=== PATIENT | male | born 1990 ===

== ENCOUNTER 2023-01-12 03:42 | Emergency (ER) | payer BC ==
[2023-01-12] MEDS ORDERED: Ondansetron 4 MG/2 ML SDV IVPUSH ONE (03:51)
[2023-01-12] MEDS ORDERED: Morphine 4 MG/ML Syringe IVPUSH ONE (03:51)
[2023-01-12] MEDS ORDERED: Sodium Chloride 0.9% 1,000 ML IV ONE (03:51)
[2023-01-12] MEDS ORDERED: Iopamidol 755 MG/ML 500 ML Multipack Bottle IVPUSH ONE ×2 (04:02→04:57)
[2023-01-12 04:27] LABS: BASOPHILS PERCENT AUTO 0.3 % (0.0-1.5); EOSINOPHILS ABSOLUTE AUTO 0.1 K/uL (0.0-0.7); EOSINOPHILS PERCENT AUTO 0.6 % (0.0-7.0); HEMATOCRIT 45.6 % (38.0-50.0); HEMOGLOBIN 15.3 g/dL (13.0-17.0); LYMPHOCYTES ABSOLUTE AUTO 1.8 K/uL (0.6-2.4); LYMPHOCYTES PERCENT AUTO 15.3 % (16.0-40.0); MEAN CORPUSCULAR HEMOGLOBIN 28.1 pg (27.0-32.0); MEAN CORPUSCULAR HGB CONC 33.6 g/dL (31.0-37.0); MEAN CORPUSCULAR VOLUME 83.8 fL (80.0-98.0); MONOCYTES ABSOLUTE AUTO 0.4 K/uL (0.0-0.8); MONOCYTES PERCENT AUTO 3.8 % (0.0-15.0); NEUTROPHILS ABSOLUTE AUTO 9.2 K/uL (1.4-5.7); NRBC ABSOLUTE 0 K/uL; PLATELET COUNT,PLT 253 K/uL (150-400); RED BLOOD CELL COUNT 5.44 M/uL (4.50-5.90); WHITE BLOOD CELL COUNT,WBC 11.54 K/uL (4.0-11.0)
[2023-01-12 04:48] LABS: A/G RATIO 1.1 (0.9-1.6); ALBUMIN 4.1 g/dL (3.4-5.0); BILIRUBIN TOTAL 0.4 mg/dL (0.2-1.0); CALCIUM 9.1 mg/dL (8.5-10.1); CREATININE 1.1 mg/dL (0.8-1.3); EST CRCL DRUG DOSING (CG) 88.47 mL/min; MAGNESIUM 1.9 mg/dL (1.8-2.4); POTASSIUM,K 3.9 mmol/L (3.5-5.1); PROTEIN TOTAL,TP 7.7 g/dL (6.4-8.2)
[2023-01-12] MEDS ORDERED: HYDROmorphone 1 MG/ML Syringe IVPUSH ONE (04:48)
[2023-01-12 04:52] LABS: LACTIC ACID 2.5 mmol/L (0.4-2.0)
== END 2023-01-12 06:11 | disposition home or self-care (01) ==
LOC: MW.ED 03:42
DX: R10.11 Right upper quadrant pain (principal); K21.9 Gastro-esophageal reflux disease without esophagitis; Z90.49 Acquired absence of other specified parts of digestive tract
CPT/HCPCS: 36415; 74177; 80053; 83605; 83690; 83735; 85025; 96361; 96374; 96375; 99284; J1170; J2270; J2405; J7030; Q9967